=== PATIENT | male | born 1990 | race Caucasian/White ===

== ENCOUNTER 2018-06-15 17:38 | Emergency (ER) | payer SELFPAY ==
[~2018-06-15] VITALS: Ht 177.8 cm; Wt 74.8 kg
[2018-06-15 17:51] VITALS: BP 130/69; Ht 177.8 cm; Wt 74.8 kg
== END 2018-06-15 18:10 | disposition home or self-care (01) ==
LOC: ED 17:38
DX: S16.1XXA Strain of muscle, fascia and tendon at neck level, initial encounter (principal); V49.9XXA Car occupant (driver) (passenger) injured in unspecified traffic accident, initial encounter; Y93.I9 Activity, other involving external motion; Y92.411 Interstate highway as the place of occurrence of the external cause; Y99.8 Other external cause status

== ENCOUNTER 2018-06-18 21:26 | Emergency (ER) | payer SELFPAY ==
[~2018-06-18] VITALS: Ht 177.8 cm; Wt 78.5 kg
[2018-06-18 21:33] VITALS: Ht 177.8 cm; Wt 78.5 kg
[2018-06-18 23:45] VITALS: BP 117/75
== END 2018-06-18 23:45 | disposition home or self-care (01) ==
LOC: ED 21:26
DX: M62.830 Muscle spasm of back (principal); Z90.89 Acquired absence of other organs